=== PATIENT | female | born 1990 | race Caucasian/White ===

== ENCOUNTER 2016-10-27 19:17 | Emergency (ER) | payer BC, OTHER ==
[~2016-10-27] VITALS: Ht 165.1 cm; Wt 68.9 kg
[2016-10-27 19:24] VITALS: BP 106/60
--- NOTE | 2016-10-27 20:06 | NUR ---
TO ER BED 3
--- NOTE | 2016-10-27 20:10 | NUR ---
26Y F BIB FAMILY C/O ABDOMINAL PAIN X 2 WKS. WENT TO SEE PMD , DX. STD YESTERDAY. PT. A0, IUP 11WKS. NO MEDICAL HX.
--- NOTE | 2016-10-27 20:47 | NUR ---
MOBED TO ER BD 7 Addendum: 10/27/16 at 2048 by MEDDM MOVED TO ER BED 7
--- NOTE | 2016-10-27 21:16 | NUR ---
PT TAKEN OFF UNIT VIA WHEELCHAIR BY [employer].
--- NOTE | 2016-10-27 21:40 | NUR ---
PT BACK ON UNIT.
[2016-10-27 21:57] LABS: APPEARANCE,URINE HAZY (CLEAR); BILIRUBIN,URINE NEGATIVE (NEGATIVE); BLOOD, URINE 2+ (NEGATIVE); COLOR,URINE YELLOW (YELLOW); LEUKOCYTE ESTERASE ,URINE NEGATIVE (NEGATIVE); NITRITE, URINE NEGATIVE (NEGATIVE); PROTEIN,URINE NEGATIVE (NEGATIVE); UGLUCOSE NEGATIVE (NEGATIVE); UROBILINOGEN,URINE 0.2 EU/dL (0.2 - 1)
[2016-10-27 22:12] LABS: BACTERIA,URINE 2+ /HPF (None Seen); MUCUS,URINE 3+ /LPF (None Seen); WBC,URINE 0-3 /HPF (0-5)
[2016-10-27 22:36] VITALS: BP 116/62
--- NOTE | 2016-10-27 22:36 | NUR ---
Patient discharged with v/s stable. Written and verbal after care instructions given and explained. Patient alert, oriented and verbalized understanding of instructions. Ambulatory with steady gait. All questions addressed prior to discharge. ID band removed. Patient advised to follow up with PMD. Rx of ACETAMINOPHEN AND MACROBID given. Patient educated on indication of medication including possible reaction and side effects. Opportunity to ask questions provided and answered.
[2016-10-31 06:10] LABS: CHLAMYDIA TRACHOMATIS AMP DNA Positive (Negative)
== END 2016-10-27 22:36 | disposition home or self-care (01) ==
LOC: MED 19:17
DX: O20.0 Threatened abortion (principal); Z3A.11 11 weeks gestation of pregnancy
CPT/HCPCS: 36415; 76817; 81001; 81025; 84702; 87086; 87491; 99285

== ENCOUNTER 2020-01-07 18:40 | Inpatient (IN) | payer OTHER, SELFPAY ==
[~2020-01-07] VITALS: Ht 165.1 cm; Wt 82.1 kg
[2020-01-07] MEDS ORDERED: ACETAMINOPHEN EXTRA STRENGTH 500 MG TAB PO ONE (19:15)
[2020-01-07 19:18] VITALS: BP 120/64
--- NOTE | 2020-01-07 19:21 | NUR ---
COVID SWAB DONE.
--- NOTE | 2020-01-07 20:15 | NUR ---
PT AMBULATED TO BED 9 WITH STEADY GAIT.
--- NOTE | 2020-01-07 20:20 | NUR ---
CALLED L&D AND SPOKE TO LEYLA SMITH TO CONSULT FOR T.
--- NOTE | 2020-01-07 20:30 | NUR ---
FTH: 189, FAB MADE AWARE. PT HAS C/O 8/10 LOWER PELVIC PAIN. FAB STATED TO CALL L&D TO TX PT TO L&D FOR OBSERVATION.
--- NOTE | 2020-01-07 20:39 | NUR ---
PT UNABLE TO PROVIDE UA AT THIS TIME.
--- NOTE | 2020-01-07 20:45 | NUR ---
PT TAKEN TO L&D BED 210. REPORT GIVEN TO LEYLA SMITH FOR CONTINUATION OF CARE.
--- NOTE | 2020-01-07 20:45 | NUR ---
PT 29 Y/O FEMALE BIB SELF FOR C/O COUGH AND FEVER X 1 WEEK. IN TRIAGE PT TEMP 102.5 1 GM OF TYLENOL WAS GIVEN. CURRENT TEMP:100.1. PT STATES SHE HAS HAD A COUGH X 1 WEEK. PT NOTED WITH BILAT CRACKLES IN BILAT UPPER LOBES UPON INSPIRATION. NOTED WITH NON-PRODUCTIVE COUGH. PT HAS C/O NAUSEA, " WHEN I COUGH A LOT I FEEL LIKE I NEED TO THROW UP." PT STATES SHE CURRENTLY HAS 8/10 PELVIC PAIN. PT DENIES VAGINAL BLEEDING OR DISCHARGE. PT STATES SHE WENT TO SEE A DOCTOR X 2 DAYS AGO AND THEY STATES SHE HAD PROTIEN AND BLOOD IN HER URINE. PT CURRENT B/P: 107/67. PT ON LAYOUT FORMER. MEDHX: NONE ALLERGIES: NKA
--- NOTE | 2020-01-07 21:25 | NUR ---
SENT TO L&D VIA ED. ADMITTED UNDER .
--- NOTE | 2020-01-08 00:27 | NUR ---
BIB WHEELCHAIR TO ER RM 9 BY L&D RN
--- NOTE | 2020-01-08 00:52 | NUR ---
[place] [facility] in [facility] - 01/08/20 at 0052 by [email or web address] PT RETURNED TO BED 9 FROM L&D VIA W/C.
--- NOTE | 2020-01-08 01:10 | NUR ---
PE REPORT FROM L&D NURSE PT LABS WERE DRAWN. SPOKE TO ONOFRE IN LAB AND SHE STATED PT LABS ARE IN LAB.
--- NOTE | 2020-01-08 01:11 | NUR ---
DR. OLGUIN AT BEDSIDE.
--- NOTE | 2020-01-08 01:50 | NUR ---
IV PLACED AND COVID SWAB COLLECTED.
[2020-01-08 01:51] LABS: C-REACTIVE PROTEIN QUANT 11.6 mg/dL (0.0-0.9)
[2020-01-08 01:52] LABS: LACTATE DEHYDROGENASE 394 U/L (81-234)
--- NOTE | 2020-01-08 01:52 | NUR ---
XRAY AT BEDSIDE.
[2020-01-08 01:58] LABS: BASOPHILS % (AUTO) 0.5 % (0.0-2.0); HEMATOCRIT 37.4 % (36-48); HEMOGLOBIN 12.5 g/dL (12.0-16.0); LYMPHOCYTES # (AUTO) 0.6 K/uL (2.5-16.5); LYMPHOCYTES % (AUTO) 9.2 % (20.5-51.1); MEAN CORPUSCULAR HEMOGLOBIN 28 pg (27-31); MEAN CORPUSCULAR HGB CONC 33 g/dL (33-37); MEAN CORPUSCULAR VOLUME 84.1 fL (80-94); MONOCYTES # (AUTO) 0.2 K/uL (0.8-1.0); MONOCYTES % (AUTO) 2.8 % (1.7-9.3); NEUTROPHILS # (AUTO) 5.3 K/uL (1.8-7.7); NEUTROPHILS % (AUTO) 87.5 % (42.2-75.2); PLATELET COUNT (AUTO) 211 K/uL (140-450); RED BLOOD CELL COUNT(AUTO) 4.45 MIL/uL (4.20-5.40); RED CELL DISTRIBUTION WIDTH 13.7 % (11.6-13.7)
[2020-01-08 02:25] LABS: ALBUMIN 2.5 g/dL (3.4-5.0); ANION GAP 19.2 (8-16); CARBON DIOXIDE 19.7 mmol/L (21-32); CREATININE 0.6 mg/dL (0.6-1.3); TOTAL BILIRUBIN 0.6 mg/dL (0.0-1.0)
[2020-01-08 02:33] LABS: APPEARANCE,URINE SL CLOUDY (CLEAR); BILIRUBIN,URINE NEGATIVE (NEGATIVE); BLOOD, URINE TRACE-I (NEGATIVE); COLOR,URINE YELLOW (YELLOW); LEUKOCYTE ESTERASE ,URINE NEGATIVE (NEGATIVE); NITRITE, URINE NEGATIVE (NEGATIVE); PH,URINE 6.5 (5.0-9.0); UGLUCOSE NEGATIVE (NEGATIVE)
[2020-01-08 03:04] LABS: FREE T4 (FREE THYROXINE) 1.25 ng/dL (0.76-1.46); MAGNESIUM 1.8 mg/dL (1.8-2.4); PHOSPHORUS 3.7 mg/dL (2.5-4.9); THYROID STIMULATING HORMONE 0.84 uIU/mL (0.34-3.74)
[2020-01-08 03:25] LABS: POTASSIUM 2.9 mmol/L (3.5-5.1)
--- NOTE | 2020-01-08 03:26 | NUR ---
INFORMED POTASSIUM 2.9
[2020-01-08] MEDS: NACL 0.9% 1,000 ML IV SCH ×3 (04:15→22:57)
[2020-01-08 04:16] LABS: PROTHROMBIN TIME 9.2 secs (10.8-13.4)
--- NOTE | 2020-01-08 04:26 | NUR ---
DR NOLAND MADE AWARE OF PT CRITICAL LAB VALUE, POTASSIUM 2.9
[2020-01-08] MEDS ORDERED: MAG SULF 2000 MG/WATER PREMIX 50 ML IV ONE (04:30)
[2020-01-08] MEDS ORDERED: POTASSIUM CHLORIDE 10 MEQ TABER PO ONE (04:30)
--- NOTE | 2020-01-08 04:43 | NUR ---
PT NOTIFIED OF LOW POTASSIUM LEVELS. EDUCATED REGARDING POSSIBLE EFFECTS OF HYPOKALEMIA. EDUCATED ON MEDICATION REGIMEN. PT VERBALLY GAVE CONSENT AND UNDERSTANDING OF THE TEACHING AND MEDICATION ADMINISTRATION. MAG-RIDER AND PO K-DUR ADMINISTERED PER FAB OLGUIN ORDERS. TOLERATED WELL. NADR
--- NOTE | 2020-01-08 05:20 | NUR ---
SATURATIONS DROPPING TO 91-92% ON 2LPM ON N/C. INCREASED OXYGEN TO 5L WITH SATURATIONS NOW AT 98%. WILL CONTINUE TO MONITOR SATURATION
[2020-01-08] MEDS ORDERED: POTASSIUM CHLORIDE 10 MEQ TABER PO SCH (05:25)
[2020-01-08 05:50] LABS: RBC,URINE 0-5 /HPF (0-5); WBC,URINE 0-5 /HPF (0-5)
[2020-01-08] MEDS ORDERED: ALBUTEROL HFA MDI 90 MCG/ACTUATION 8 GM INH PRN ×2 (05:55→20:50)
--- NOTE | 2020-01-08 07:16 | NUR ---
Pt report given to LUIS JOSEPH. Transfer of care at this time.
[2020-01-08] MEDS ORDERED: PNV1TABL8 PO (07:24)
--- NOTE | 2020-01-08 07:27 | NUR ---
PT ASSISTED ONTO BEDSIDE COMMADE, URINE COLLECTED FOR UDS
--- NOTE | 2020-01-08 07:45 | NUR ---
CALLED L&D TO COME TO ER FOR MONITORING.
--- NOTE | 2020-01-08 07:59 | NUR ---
PT EATING REGULAR DIET IN BED
[2020-01-08] MEDS: guaiFENesin 600 MG TABER PO SCH ×2 (08:16→22:35)
[2020-01-08] MEDS: ENOXAPARIN 100 MG/ML SYR SUBQ SCH (08:16)
[2020-01-08] MEDS: ZINC SULF 220 MG CAP PO SCH (08:16)
[2020-01-08] MEDS: DOCUSATE SODIUM 100 MG GELCAP PO SCH ×2 (08:16→22:34)
[2020-01-08] MEDS: ASCORBIC ACID 500 MG TAB PO SCH (08:16)
[2020-01-08] MEDS: VITAMIN D 400 IU TAB PO SCH (08:16)
--- NOTE | 2020-01-08 08:29 | NUR ---
RSV AND FLU SWAB COLLECTED
[2020-01-08] MEDS ORDERED: LOVENOX 1MG/KG Q24H SUBQ SCH (09:00)
[2020-01-08 09:01] LABS: RSV NEGATIVE (NEGATIVE)
[2020-01-08] MEDS ORDERED: DOPPLER MC ONE (09:33)
[2020-01-08 09:42] LABS: CHOL/HDL RATIO 5.5 (1-4.5)
--- NOTE | 2020-01-08 09:44 | NUR ---
L&D AT BEDSIDE FOR MONITORING
--- NOTE | 2020-01-08 10:00 | NUR ---
RN FROM L%D REPORTS HR 150S-160S
--- NOTE | 2020-01-08 10:54 | NUR ---
PATIENT HAS BEEN SCREENED AND CATEGORIZED MODERATE NUTRITION RISK. PATIENT WILL BE SEEN WITHIN 3-5 DAYS OF ADMISSION. 01/10/20 01/12/[address]
--- NOTE | 2020-01-08 12:10 | NUR ---
ASSISTED PT ONTO BEDSIDE COMMODE. PT DENIES PAIN. AFEBRILE. VS STABLE
[2020-01-08] MEDS ORDERED: ALBUTEROL HFA MDI 90 MCG/ACTUATION 8 GM INH SCH (13:00)
--- NOTE | 2020-01-08 13:55 | NUR ---
COTTON MACHINE OPERATOR NOTE: Patient's Orientation Person Situation Place Time Information Provided By MIKE SANTANA Comments SW WAS UNABLE TO MEET PATIENT DUE TO MEDICAL CONDITION. Physician Industrial, Realtionship and Phone Number MIKE MAX [phone] Healthcare Power of Dog Breeder No Does Patient Have a POLST No Identifying Problems No Social Work Triggers Is A Social Work Consult Needed No Mandate Report Filed No Explanation Of Identifying Problems PATIENT IS A 29-YEAR-OLD MALE ADMITTED FOR RESPIRATORY INSUFFICIENCY. PATIENT HAS PMHX OF , 22 WEEKS GESTATION. Admitted From Home Pre-Admission Level Of Functioning Status Independent/Ambulatory Prior Resources/Services Used In Last 12 Months No Prior Resources Used Prior DME No Prior DME Used Living Situation Lives With Family House Patient Had Caregiver No Home Support No Caregiver Issues Financial Issues No Known Financial Issue Referral To The Financial Counselor Needed No Factors/Needs No D/C Needs Identified Pt/Rep Participated In Discharge Plan Yes Patient/Family Agress With Discharge Plan Yes Discharge Plan Comments TENTATIVE DISCHARGE PLAN IS FOR PATIENT TO RETURN HOME. DC Plan Status Initiated
[2020-01-08] MEDS: ACETAMINOPHEN 325 MG TAB PO PRN (17:11)
--- NOTE | 2020-01-08 17:12 | NUR ---
TYLENOL PO ADMINISTERED. PT STATES PAIN 6/10 SORE THROAT
--- NOTE | 2020-01-08 18:51 | NUR ---
DR ANAYA AT BEDSIDE
--- NOTE | 2020-01-08 19:14 | NUR ---
REPORT RECEIVED FROM JAKE SMITH
--- NOTE | 2020-01-08 19:17 | NUR ---
REPORT TO SEBLE SMITH, TRANSFER OF CARE
--- NOTE | 2020-01-08 19:45 | NUR ---
PT RESTING COMFORTABLY AT THIS TIME, PT REMAINS ON 5L N/C. PT DENIES ANY PAIN OR SOB AT THIS TIME. PT TO BE TRANSFERRED TO L & D ROOM 210
--- NOTE | 2020-01-08 20:30 | NUR ---
Patient will be admitted to [facility]. Admited to L & D. Will go to room 210. Belongings list completed. Report to RUY SMITH.
[2020-01-08 22:00] VITALS: BP 120/65
--- NOTE | 2020-01-08 22:00 | NUR ---
Admitted from ER TO TELEMETRY UNIT, with chief complaint of COUGH , FEVER FOR ALMOST ONE WEEK NOW. 29 y/o ,Female, Cooperative, AWAKE, A/OX4. , ON 22 WEEKS OF . FHB CHECKED BY OB NURSE, RATE OF 150. RESPIRATION EVEN AND UNLABORED. LUNGS CLEAR ON BILATERAL AUSCULTATION. WITH OCCASIONAL UNPRODUCTIVE COUGHING. IV NS INFUSING AT 25 ML/HR AT THE RIGHT AC G20. AMBULATORY TO THE BATHROOM. HEAD TO TOE ASSESSMENT DONE WITH JUANPABLO SMITH, SKIN IS INTACT. DENIES PAIN 0/10.oriented to call light, bed, phone,television, bathroom, smoking policy,visiting hours, procedures, ID bracelet on. Belongings list checked.
[2020-01-08] MEDS ORDERED: cefTRIAXone 1,000 MG VIAL ONE (22:40)
--- NOTE | 2020-01-09 | NUR ---
COMPLETED AND REVIEWED POC WITH FABIAN SULTANA.
[2020-01-09] MEDS: NACL 0.9% 1,000 ML IV SCH ×3 (00:20→20:34)
[2020-01-09] MEDS: guaiFENesin 20 MG/ML UDC PO PRN ×4 (01:55→20:19)
--- NOTE | 2020-01-09 01:55 | NUR ---
WITH COUGHING, MEDICATED WITH ROBITUSSIN PER MD ORDER.
[2020-01-09] MEDS: ACETAMINOPHEN 325 MG TAB PO PRN (02:23)
--- NOTE | 2020-01-09 02:55 | NUR ---
RESTING IN BED, NO COUGHING NOTED.
--- NOTE | 2020-01-09 03:37 | NUR ---
INSTRUCTION GIVEN ON HOW TO COLLECT SPUTUM FOR TEST, SPECIMEN CONTAINER GIVEN.
[2020-01-09 04:00] VITALS: BP 112/70
--- NOTE | 2020-01-09 05:00 | NUR ---
FINALLY ABLE TO GO TO SLEEP. NO SOB NOTED.
[2020-01-09 06:21] LABS: BASOPHILS % (AUTO) 0.1 % (0.0-2.0); EOSINOPHILS % (AUTO) 0.3 % (0.0-4.0); HEMOGLOBIN 10.3 g/dL (12.0-16.0); LYMPHOCYTES # (AUTO) 0.7 K/uL (2.5-16.5); LYMPHOCYTES % (AUTO) 12.2 % (20.5-51.1); MEAN CORPUSCULAR HEMOGLOBIN 28 pg (27-31); MEAN CORPUSCULAR HGB CONC 33 g/dL (33-37); MEAN CORPUSCULAR VOLUME 84.7 fL (80-94); MONOCYTES # (AUTO) 0.3 K/uL (0.8-1.0); MONOCYTES % (AUTO) 5.7 % (1.7-9.3); NEUTROPHILS # (AUTO) 4.5 K/uL (1.8-7.7); NEUTROPHILS % (AUTO) 81.7 % (42.2-75.2); PLATELET COUNT (AUTO) 219 K/uL (140-450); RED BLOOD CELL COUNT(AUTO) 3.66 MIL/uL (4.20-5.40); RED CELL DISTRIBUTION WIDTH 13.5 % (11.6-13.7); WHITE BLOOD COUNT (AUTO) 5.5 K/uL (4.8-10.8)
--- NOTE | 2020-01-09 07:18 | NUR ---
RECEIVED REPORT FROM RETORT LOAD EXPEDITER RN FOR CONTINUITY OF CARE. PT IS AAOX4, COOPERATIVE AND ABLE TO MAKE NEEDS KNOWN. PT ON 3L O2 VIA NC SATING WELL. PT SKIN INTACT. PT HAS RIGHT AC 20G INFUSING NS@ 100ML/HR. DISCUSSED POC WITH PT NAD PT VERBALIZED UNDERSTANDING. ALL SAFETY MEASURES IN PLACE. WILL ROUND FREQUENTLY ON PT THROUGHOUT THE SHIFT.
--- NOTE | 2020-01-09 07:20 | NUR ---
RESPIRATORY STATUS REMAIN STABLE. ENDORSED TO AM SHIFT NURSE FOR CONTINUITY OF CARE.
[2020-01-09 08:00] VITALS: BP 118/75
[2020-01-09 08:28] LABS: BARBITURATE, URINE NEGATIVE ng/ml (NEG <=200); BENZODIAZEPINE, URINE NEGATIVE ng/mL (NEG <=200); CANNABINOID, URINE NEGATIVE ng/mL (NEG <=50); COCAINE, URINE NEGATIVE ng/mL (NEG <=300); OPIATE, URINE NEGATIVE ng/mL (NEG <=2000); PHENCYCLIDINE SCREEN,URINE NEGATIVE ng/mL (NEG <=25)
[2020-01-09 08:53] LABS: ALBUMIN 1.9 g/dL (3.4-5.0); ANION GAP 17.7 (8-16); CARBON DIOXIDE 18.4 mmol/L (21-32); CREATININE 0.5 mg/dL (0.6-1.3); POTASSIUM 3.1 mmol/L (3.5-5.1); TOTAL BILIRUBIN 0.5 mg/dL (0.0-1.0)
[2020-01-09] MEDS: VITAMIN D 400 IU TAB PO SCH (08:53)
[2020-01-09] MEDS: DOCUSATE SODIUM 100 MG GELCAP PO SCH ×2 (08:54→20:19)
[2020-01-09] MEDS: guaiFENesin 600 MG TABER PO SCH ×2 (08:54→20:35)
[2020-01-09] MEDS: ASCORBIC ACID 500 MG TAB PO SCH (08:54)
[2020-01-09] MEDS: ZINC SULF 220 MG CAP PO SCH (08:54)
[2020-01-09] MEDS: prednisoLONE 15 MG/5 ML UDC PO SCH (08:55)
[2020-01-09] MEDS: ENOXAPARIN 100 MG/ML SYR SUBQ SCH (08:55)
--- NOTE | 2020-01-09 09:40 | NUR ---
PT RESTING IN BED. ALL NEEDS MET.
--- NOTE | 2020-01-09 11:20 | NUR ---
PT ASLEEP. ALL NEEDS MET.
[2020-01-09 12:00] VITALS: BP 121/72
--- NOTE | 2020-01-09 12:39 | NUR ---
DISCHARGE PLANNING: THIS IS A 29 Y/O FEMALE 23 WKS GESTATION PATIENT FROM HOME, WHO CAME IN DUE TO FLU LIKE SYMPTOMS. INITIAL DIAGNOSIS OF RESPIRATORY INSUFFICIENCY, POSSIBLE COVID. COVID TEST PENDING. ON O2 AT 3 LPM/NC 02 SAT 96-98%. BLOOD, URINE CS AND MRSA NARES PENDING. CXR ON ADMISSION SHOWED BILATERAL INFILTRATES IN A PATTERN SUSPICIOUS FOR COVID 19. ON PREDNISONE, ROCEPHIN. OB AND PULMO CONSULTS IN PLACE. DC PLAN BACK TO HOME ONCE STABLE.
--- NOTE | 2020-01-09 13:13 | NUR ---
PT RESTING IN BED. ALL NEEDS MET.
--- NOTE | 2020-01-09 15:40 | NUR ---
PT HAVING SNACK. ALL NEEDS MET.
[2020-01-09 16:00] VITALS: BP 117/78
--- NOTE | 2020-01-09 17:50 | NUR ---
OB RN CAME TO CHECK TONE. HEART RATE IS 155-160 BPM.
--- NOTE | 2020-01-09 19:00 | NUR ---
WILL ENDORSE PT TO REFUGE WORKER FOR CONTINUITY OF CAR. PT IN STABLE CONDITION AT THIS TIME.
--- NOTE | 2020-01-09 19:30 | NUR ---
RECEIVED BEDSIDE REPORT FROM DAY SHIFT NURSE. PATIENT IS 22 WEEKS . RESPIRATION EVEN UNLABORED ON 3L NC O2. NO DISTRESS NOTED. SKIN IS WARM AND DRY. IV PATENT AND INTACT. PLAN OF CARE WAS DISCUSSED. ALL SAFETY MEASURES IN PLACE. BED IS AT LOW POSITION. CALL LIGHT WITHIN REACH. WILL CONTINUE TO MONITOR.
--- NOTE | 2020-01-09 19:55 | NUR ---
INITIAL ASSESSMENT DONE. VITALS WERE TAKEN. PATIENT IN STABLE CONDITION. NO DISTRESS NOTED. PATIENT ON 3L NC O2. SATING 97%. COUGH NOTED AND PATIENT IS ASKING FOR ROBITUSSIN. WILL CONTINUE TO MONITOR.
[2020-01-09 20:00] VITALS: BP 102/59
--- NOTE | 2020-01-09 20:20 | NUR ---
ALL SCHEDULED MEDS WERE GIVEN. PATIENT REFUSED MUCINEX PER PATIENT STATED IT DOESN'T WORK. PATIENT ASK FOR ROBITUSSIN INSTEAD. PRN ROBITUSSIN FOR COUGH GIVEN PER ORDER. WILL CONTINUE TO MONITOR.
--- NOTE | 2020-01-09 22:15 | NUR ---
CALLED L&D NURSE TO CHECK PATIENT FHT PER ORDER. WILL CONTINUE TO MONITOR.
--- NOTE | 2020-01-09 22:56 | NUR ---
OB RN CAME TO CHECK TONE. HEART RATE IS 150 BPM.
--- NOTE | 2020-01-09 23:53 | NUR ---
VITALS WERE TAKEN. PATIENT IN STABLE CONDITION. WILL CONTINUE TO MONITOR
[2020-01-10] VITALS: BP 98/58
--- NOTE | 2020-01-10 02:11 | NUR ---
ENDORSED PATIENT TO SUZETTE RN FOR CONTINUITY OF CARE. PATIENT IN STABLE CONDITION.
--- NOTE | 2020-01-10 02:12 | NUR ---
RECEIVED ENDORSEMENT FROM LUIS VASQUES PATIENT IS LYING IN BED, WITH O2 AT 3L NC, NO SOB, AAOX4, IV SITE AT RAC 20G, INTACT AND PATENT, INFUSING NS AT 60 CC/HR. SKIN INTACT, 22 WKS PER ENDORSEMENT, WITH FHT OF 150 BPM, TELE MONITOR ATTACHED, DROPLET PRECAUTION IN PLACE, PLAN OF CARE WAS DISCUSSED. CALL LIGHT WITHIN REACH, WILL CONTINUE TO MONITOR.
[2020-01-10] MEDS: guaiFENesin 20 MG/ML UDC PO PRN (02:42)
--- NOTE | 2020-01-10 02:42 | NUR ---
PATIENT COMPLAINED OF COUGH. PRN COUGH MEDICINE GIVEN PER ORDER. WILL CONTINUE TO MONITOR.
[2020-01-10] MEDS: NACL 0.9% 1,000 ML IV SCH (02:54)
[2020-01-10 04:00] VITALS: BP 104/59
--- NOTE | 2020-01-10 04:00 | NUR ---
V/S TAKEN AND RECORDED, KEPT COMFORTABLE, NO SOB.
[2020-01-10 05:55] LABS: BASOPHILS % (AUTO) 0.1 % (0.0-2.0); EOSINOPHILS % (AUTO) 0.4 % (0.0-4.0); HEMATOCRIT 30.1 % (36-48); HEMOGLOBIN 10.2 g/dL (12.0-16.0); LYMPHOCYTES # (AUTO) 0.7 K/uL (2.5-16.5); LYMPHOCYTES % (AUTO) 11.1 % (20.5-51.1); MEAN CORPUSCULAR HEMOGLOBIN 29 pg (27-31); MEAN CORPUSCULAR HGB CONC 34 g/dL (33-37); MEAN CORPUSCULAR VOLUME 84.1 fL (80-94); MONOCYTES # (AUTO) 0.3 K/uL (0.8-1.0); MONOCYTES % (AUTO) 4.6 % (1.7-9.3); NEUTROPHILS # (AUTO) 5.3 K/uL (1.8-7.7); NEUTROPHILS % (AUTO) 83.8 % (42.2-75.2); PLATELET COUNT (AUTO) 264 K/uL (140-450); RED BLOOD CELL COUNT(AUTO) 3.57 MIL/uL (4.20-5.40); RED CELL DISTRIBUTION WIDTH 13.3 % (11.6-13.7); WHITE BLOOD COUNT (AUTO) 6.3 K/uL (4.8-10.8)
[2020-01-10 07:06] LABS: ALBUMIN 1.9 g/dL (3.4-5.0); CREATININE 0.4 mg/dL (0.6-1.3); TOTAL BILIRUBIN 0.3 mg/dL (0.0-1.0)
--- NOTE | 2020-01-10 07:15 | NUR ---
RECEIVED BEDSIDE REPORT FROM COMMERCIAL DRIVER'S LICENSE DRIVER NURSE FOR CONTINUITY OF CARE. PATIENT IS 22 WEEKS . RESPIRATION EVEN AND UNLABORED ON 3L NC O2 WITH SAO2 AT 96%. NO DISTRESS NOTED. SKIN IS WARM AND DRY. IV ON THE RAC 20G, PATENT AND INTACT WITH IVF RUNNING PER ORDERS. PLAN OF CARE WAS DISCUSSED AND PATIENT VERBALIZES UNDERSTANDING. ALL SAFETY MEASURES IN PLACE. DROPLET ISOLATION OBSERVED BY ALL STAFF. BED IS AT LOW POSITION. CALL LIGHT WITHIN REACH. WILL CONTINUE TO MONITOR.
--- NOTE | 2020-01-10 07:20 | NUR ---
PATIENT IS STABLE, NO SOB, ENDORSED AT BEDSIDE TO AM SHIFT RN FOR CONTINUITY OF CARE.
[2020-01-10 08:00] VITALS: BP 103/61
--- NOTE | 2020-01-10 08:20 | NUR ---
MORNING V/S TAKEN AND IS WNL. PATIENT VERBALIZES NO PAIN AND NO SIGNS OF DISTRESS NOTED. WILL CONTINUE TO MONITOR.
[2020-01-10] MEDS: VITAMIN D 400 IU TAB PO SCH (09:19)
[2020-01-10] MEDS: ASCORBIC ACID 500 MG TAB PO SCH (09:19)
[2020-01-10] MEDS: guaiFENesin 600 MG TABER PO SCH ×2 (09:20→22:35)
[2020-01-10] MEDS: ZINC SULF 220 MG CAP PO SCH (09:20)
[2020-01-10] MEDS: DOCUSATE SODIUM 100 MG GELCAP PO SCH ×2 (09:20→22:34)
--- NOTE | 2020-01-10 09:20 | NUR ---
MORNING MEDICATIONS GIVEN. NO SIGNS OF DISTRESS NOTED. WILL CONTINUE TO MONITOR.
[2020-01-10] MEDS: prednisoLONE 15 MG/5 ML UDC PO SCH (09:23)
[2020-01-10] MEDS: ENOXAPARIN 100 MG/ML SYR SUBQ SCH (09:26)
--- NOTE | 2020-01-10 11:55 | NUR ---
POTASSIUM IVF GIVEN FOR POTASSIUM OF 3.0. NO SIGNS OF DISTRESS NOTED. WILL CONTINUE TO MONITOR.
[2020-01-10 12:00] VITALS: BP 108/60
[2020-01-10] MEDS ORDERED: POTASSIUM CHLORIDE 40 MEQ, LIDOCAINE MPF 1% 25 MG in NACL 0.9% 250 ML IV SCH (12:30)
--- NOTE | 2020-01-10 12:50 | NUR ---
V/S TAKEN AND IS WNL. NO SIGNS OF DISTRESS NOTED. PATIENT IS ASLEEP AND IN BED. WILL CONTINUE TO MONITOR.
[2020-01-10 16:00] VITALS: BP 103/55
--- NOTE | 2020-01-10 16:20 | NUR ---
PATIENT IS AWAKE AND IN BED. PATIENT VERBALIZES NO PAIN, NO SIGNS OF DISTRESS NOTED. WILL CONTINUE TO MONITOR.
--- NOTE | 2020-01-10 19:20 | NUR ---
ENDORSED TO CAPACITY MANAGEMENT SPECIALIST NURSE FOR CONTINUITY OF CARE.
--- NOTE | 2020-01-10 19:30 | NUR ---
RECEIVED ENDORSED POC FROM DAYSORFT NURSE FOR CONTINUITY OF CARE. PT IS AOX 4 AMBULATORY WITH SKIN INTACT . SHE HAS RAC 20 GUAGE INTACT AND RUNNING N/S AT 60MLS/HR. SHE HAS DRY INTERMITTENT NON PRODUCTIVE COUGH , BUT DENIES ANY PAIN. SHE HAS 02 RUNNING AT 3 LITERS VIA N/C. ALL DROPLET PRECAUTIONS IN PLACE.
[2020-01-10 20:00] VITALS: BP 104/60
--- NOTE | 2020-01-10 21:00 | NUR ---
PT GIVEN ORDERED MEDICATION AT BEDSIDE,(IVPB ROCEPHIN, COLACE AND MUCINEX). EDUCATION REGARDING MEDICATION PROVIDED INCLUDING SIDE EFFECTS, PT VERBALIZED UNDERSTANDING. ALL DROPLET PRECAUTIONS IN PLACE.
--- NOTE | 2020-01-10 22:30 | NUR ---
TONES DONE AT BEDSIDE WHICH WAS 150-160, WHICH ARE WITHIN NORMAL RANGE.
[2020-01-11] VITALS: BP 101/51
--- NOTE | 2020-01-11 | NUR ---
PT IN BED AWARE NO S/S OF PAIN OR DISTRESS NOTED, V/S FOLLOWS: T 97.8 P 82 R 20 B/P 101/51 02 97% WITH 3 LITERS VIA N/C. N/S RUNNING ORDERED AND PT RESPIRATIONS EVEN AND UNLABORED. ALL DROPLET PRECAUTIONS IN PLACE.
[2020-01-11 04:00] VITALS: BP 111/64
--- NOTE | 2020-01-11 04:00 | NUR ---
PT IN BED NO C/O VOICED V/S FOLLOWS: T 97.4 P 86 R 20 B/P 111/64 02 98% WITH 2.5 LITERS VIA N/C. ALL DROPLET PRECAUTIONS IN PLACE.
[2020-01-11] MEDS: NACL 0.9% 1,000 ML IV SCH ×2 (06:00→22:44)
[2020-01-11 06:19] LABS: BASOPHILS % (AUTO) 0.2 % (0.0-2.0); EOSINOPHILS # (AUTO) 0.1 K/uL (0-0.4); EOSINOPHILS % (AUTO) 1.2 % (0.0-4.0); HEMATOCRIT 29.3 % (36-48); HEMOGLOBIN 9.9 g/dL (12.0-16.0); LYMPHOCYTES # (AUTO) 0.7 K/uL (2.5-16.5); MEAN CORPUSCULAR HEMOGLOBIN 28 pg (27-31); MEAN CORPUSCULAR HGB CONC 34 g/dL (33-37); MONOCYTES # (AUTO) 0.4 K/uL (0.8-1.0); MONOCYTES % (AUTO) 5.7 % (1.7-9.3); NEUTROPHILS # (AUTO) 5.9 K/uL (1.8-7.7); NEUTROPHILS % (AUTO) 82.9 % (42.2-75.2); PLATELET COUNT (AUTO) 287 K/uL (140-450); RED BLOOD CELL COUNT(AUTO) 3.49 MIL/uL (4.20-5.40); RED CELL DISTRIBUTION WIDTH 13.7 % (11.6-13.7); WHITE BLOOD COUNT (AUTO) 7.1 K/uL (4.8-10.8)
[2020-01-11 06:34] LABS: ALBUMIN 1.6 g/dL (3.4-5.0); ANION GAP 14.6 (8-16); CARBON DIOXIDE 20.4 mmol/L (21-32); CREATININE 0.5 mg/dL (0.6-1.3); TOTAL BILIRUBIN 0.3 mg/dL (0.0-1.0)
[2020-01-11 07:17] LABS: MAGNESIUM 1.5 mg/dL (1.8-2.4); PHOSPHORUS 2.9 mg/dL (2.5-4.9)
--- NOTE | 2020-01-11 07:30 | NUR ---
Received report from shift leader nurse at bedside for continuity of care. Patient AOx4, ambulatory, skin intact, on 4L O2 via NC. RAC 20G IV intact, asymptomatic, running NS at 60 cc/hr. Patient denies pain. inform her about sputum collection, she verbalized understanding, but only has dry cough. Patient on droplet precautions for positive covid result. Plan of care verbalized, she verbalized understanding. Droplet precautions in place, call light within reach, will continue to monitor patient.
[2020-01-11 08:00] VITALS: BP 109/61
--- NOTE | 2020-01-11 08:30 | NUR ---
CALLED L&D, INFORMED THEM OF NEED FOR FHT QSHIFT. THEY VERBALIZED UNDERSTANDING AND WILL SEND SOMEONE OVER WHEN AVAILABLE. PATIENT AWARE OF PLAN. WILL CONTINUE TO MONITOR PATIENT.
[2020-01-11] MEDS: ASCORBIC ACID 500 MG TAB PO SCH (09:09)
[2020-01-11] MEDS: DOCUSATE SODIUM 100 MG GELCAP PO SCH ×2 (09:09→20:16)
--- NOTE | 2020-01-11 09:09 | NUR ---
ORDERED MEDICATIONS GIVEN. LOVENOX AND GUANIFESIN NOT GIVEN AT THIS TIME BECAUSE NOT AVAILABLE IN OMNICELL. PATIENT AWARE. PATIENT'S O2 DECREASED FROM 3L TO 2L, VERBALIZED PLAN TO WEAN PATIENT TO ROOM AIR. PATIENT AGREEABLE TO PLAN. O2 SAT AT THIS TIME 95% ON 2L. PATIENT AWARE TO CALL RN IF SOB OR DISTRESS. CURRENTLY DENIES PAIN. NO COMPLAINTS AT THIS TIME. DROPLET PRECAUTIONS IN PLACE, CALL LIGHT WITHIN REACH, WILL CONTINUE TO MONITOR PATIENT.
[2020-01-11] MEDS: VITAMIN D 400 IU TAB PO SCH (09:10)
[2020-01-11] MEDS: ZINC SULF 220 MG CAP PO SCH (09:10)
[2020-01-11] MEDS: guaiFENesin 600 MG TABER PO SCH ×2 (10:40→20:16)
--- NOTE | 2020-01-11 10:40 | NUR ---
ORDERED MEDICATIONS GIVEN. PATIENT TOLERATED THEM. PATIENT CURRENTLY OFF OF O2. O2 SATURATION 92%. WILL MONITOR PATIENT CLOSELY. INFORM PATIENT TO CALL RN IF SOB OR DISTRESS. PATIENT VERBALIZED UNDERSTANDING. Addendum: 01/11/20 at 1057 by Indra Tamayo RN L&D NURSE DAILYNN CAME. HEART TONES 160.
[2020-01-11] MEDS: ENOXAPARIN 80 MG/0.8 ML SYR SUBQ SCH (10:42)
--- NOTE | 2020-01-11 10:45 | NUR ---
Inform Dr. Whitlock about patient's Mag level of 1.5 and K level of 3.0. Will wait for his orders.
[2020-01-11 11:30] VITALS: BP 106/64
[2020-01-11] MEDS ORDERED: MAG SULF 2000 MG/WATER PREMIX 50 ML IV SCH (11:30)
[2020-01-11] MEDS ORDERED: POTASSIUM CHLORIDE 40 MEQ, LIDOCAINE MPF 1% 25 MG in NACL 0.9% 250 ML IV SCH (11:45)
--- NOTE | 2020-01-11 12:55 | NUR ---
Inform Dr. Whitlock that patient could benefit from IS, new order in for IS. IS given to patient. Patient educated on its use and benefits. Patient verbalized understanding and agreeable to use it. Will continue to monitor patient.
[2020-01-11 16:00] VITALS: BP 109/68
--- NOTE | 2020-01-11 16:10 | NUR ---
VS WNL. Patient has no complaints at this time. Call light within reach, will continue to monitor patient.
--- NOTE | 2020-01-11 18:20 | NUR ---
Patient sitting up in bed eating dinner. Encouraged patient to use IS, patient in agreement. No complaints at this time. Call light within reach, will continue to monitor patient and endorse to thread spinner nurse.
--- NOTE | 2020-01-11 19:05 | NUR ---
RECEIVED BEDSIDE SHIFT REPORT FROM DAY SHIFT NURSE. PATIENT IN BED RESTING. PT IS AAOX4, AMBULATORY, AND ABLE TO MAKE NEEDS KNOWN. RESPIRATIONS ARE EVEN AND UNLABORED TO ROOM AIR, O2 SAT 94%. SKIN IS WARM, DRY, AND INTACT. IV ACCESS ON RIGHT AC G20 IS PATENT AND INTACT. IVF INFUSING WELL AT 60 CC/HR ORDERED. PT IS 22 WEEKS . DENIES ANY PAIN OR DISCOMFORT AT THIS TIME. PLAN OF CARE DISCUSSED. PT VERBALIZED UNDERSTANDING. SAFETY MEASURES IN PLACE. CALL LIGHT WITHIN REACH. WILL CONTINUE TO MONITOR.
[2020-01-11 20:00] VITALS: BP 108/65
--- NOTE | 2020-01-11 20:16 | NUR ---
VITAL SIGNS STABLE. SCHEDULED MEDS GIVEN ORDERED. PT IN BED WITH HOB ELEVATED. NOT IN DISTRESS. DENIES ANY PAIN OR DISCOMFORT. STILL WITH MILD COUGH. O2 SAT 95%. NO REQUESTS MADE AT THIS TIME. PT KEPT COMFORTABLE. CALL LIGHT WITHIN REACH. WILL CONTINUE TO MONITOR.
--- NOTE | 2020-01-11 21:28 | NUR ---
L&D NURSE AT BEDSIDE FOR FHT MONITORING. FHT 158. WILL CONTINUE TO MONITOR.
--- NOTE | 2020-01-11 22:44 | NUR ---
PT IN BED WATCHING TV WITH HOB ELEVATED. RESPIRATIONS EVEN AND UNLABORED. O2 SAT 94%. DENIES ANY PAIN OR DISCOMFORT. NEW IV BAG HANGED. PT KEPT COMFORTABLE. CALL LIGHT WITHIN REACH. WILL CONTINUE TO MONITOR.
[2020-01-12] VITALS: BP 109/66
--- NOTE | 2020-01-12 00:07 | NUR ---
PT IN BED WATCHING TV WITH HOB ELEVATED. VITAL SIGNS STABLE. PT NOT IN RESPIRATORY DISTRESS. O2 SAT 97%. DENIES ANY PAIN OR DISCOMFORT AT THIS TIME. NO REQUESTS MADE. PT KEPT COMFORTABLE. SAFETY MEASURES IN PLACE. WILL CONTINUE TO MONITOR.
--- NOTE | 2020-01-12 02:02 | NUR ---
PT ASLEEP. O2 IN PLACE. VISIBLE CHEST RISE AND FALL NOTED. NO S/SX OF DISTRESS. PT KEPT COMFORTABLE. SAFETY MEASURES IN PLACE. CALL LIGHT WITHIN REACH. WILL CONTINUE TO MONITOR.
[2020-01-12 04:00] VITALS: BP 108/58
--- NOTE | 2020-01-12 04:19 | NUR ---
VITAL SIGNS STABLE. PT IN BED RESTING. RESPIRATIONS EVEN AND UNLABORED. PT NOT IN DISTRESS. O2 SAT 95% ON ROOM AIR. DENIES ANY PAIN OR DISCOMFORT AT THIS TIME. STILL WITH INTERMITTENT DRY COUGH. NO REQUESTS MADE. PT KEPT COMFORTABLE. SAFETY MEASURES IN PLACE. CALL LIGHT WITHIN REACH. WILL CONTINUE TO MONITOR.
[2020-01-12 06:00] LABS: BASOPHILS % (AUTO) 0.1 % (0.0-2.0); EOSINOPHILS # (AUTO) 0.1 K/uL (0-0.4); EOSINOPHILS % (AUTO) 1.7 % (0.0-4.0); HEMATOCRIT 28.7 % (36-48); HEMOGLOBIN 9.6 g/dL (12.0-16.0); LYMPHOCYTES # (AUTO) 0.8 K/uL (2.5-16.5); LYMPHOCYTES % (AUTO) 11.9 % (20.5-51.1); MEAN CORPUSCULAR HEMOGLOBIN 28 pg (27-31); MEAN CORPUSCULAR HGB CONC 34 g/dL (33-37); MEAN CORPUSCULAR VOLUME 83.8 fL (80-94); MONOCYTES # (AUTO) 0.4 K/uL (0.8-1.0); MONOCYTES % (AUTO) 6.3 % (1.7-9.3); NEUTROPHILS # (AUTO) 5.1 K/uL (1.8-7.7); PLATELET COUNT (AUTO) 316 K/uL (140-450); RED BLOOD CELL COUNT(AUTO) 3.42 MIL/uL (4.20-5.40); RED CELL DISTRIBUTION WIDTH 13.6 % (11.6-13.7); WHITE BLOOD COUNT (AUTO) 6.4 K/uL (4.8-10.8)
--- NOTE | 2020-01-12 06:08 | NUR ---
PT ASLEEP. RESPIRATIONS EVEN AND UNLABORED. CURRENT O2 SAT 94%. PT NOT IN DISTRESS. NOTED VISIBLE CHEST RISE AND FALL. PT KEPT COMFORTABLE. CALL LIGHT WITHIN REACH. WILL CONTINUE TO MONITOR.
[2020-01-12 06:36] LABS: ALBUMIN 1.7 g/dL (3.4-5.0); ANION GAP 14.5 (8-16); CARBON DIOXIDE 19.7 mmol/L (21-32); CREATININE 0.5 mg/dL (0.6-1.3); MAGNESIUM 1.6 mg/dL (1.8-2.4); PHOSPHORUS 3.2 mg/dL (2.5-4.9); POTASSIUM 3.2 mmol/L (3.5-5.1); TOTAL BILIRUBIN 0.3 mg/dL (0.0-1.0)
--- NOTE | 2020-01-12 07:00 | NUR ---
Received report from shift superintendent caustic cresylate nurse at bedside for continuity of care. Patient AOx4, ambulatory, skin intact, on 4L O2 via NC. RAC 20G IV intact, asymptomatic, running NS at 60 cc/hr. Patient denies pain. Patient on droplet precautions for positive covid result. Plan of care verbalized, she verbalized understanding. Droplet precautions in place, call light within reach, will continue to monitor patient.
--- NOTE | 2020-01-12 07:03 | NUR ---
GAVE BEDSIDE REPORT TO DAY SHIFT NURSE FOR CONTINUITY OF CARE. PATIENT IS IN STABLE CONDITION.
[2020-01-12 08:00] VITALS: BP 105/65
[2020-01-12] MEDS: VITAMIN D 400 IU TAB PO SCH (08:50)
[2020-01-12] MEDS: ASCORBIC ACID 500 MG TAB PO SCH (08:50)
[2020-01-12] MEDS: guaiFENesin 600 MG TABER PO SCH (08:50)
[2020-01-12] MEDS: ZINC SULF 220 MG CAP PO SCH (08:50)
[2020-01-12] MEDS: DOCUSATE SODIUM 100 MG GELCAP PO SCH (08:51)
[2020-01-12] MEDS: ENOXAPARIN 80 MG/0.8 ML SYR SUBQ SCH (08:54)
[2020-01-12] MEDS ORDERED: AZIT250T3 PO (11:13)
[2020-01-12] MEDS ORDERED: MAGN241.1 PO (11:14)
[2020-01-12] MEDS ORDERED: POTA10TE30 PO (11:14)
[2020-01-12] MEDS ORDERED: POTASSIUM CHLORIDE 10 MEQ TABER PO SCH (11:15)
[2020-01-12] MEDS ORDERED: MAGNESIUM OXIDE 400 MG TAB PO SCH (11:15)
--- NOTE | 2020-01-12 12:20 | NUR ---
DISCHARGE INSTRUCTIONS AND EDUCATION GIVEN TO PATIENT. INSTRUCTIONS ABOUT COVID 19 AND ISOLATION POST DISCHARGE, PRESCRIPTIONS, FOLLOW UP WITH PCP AND OB, NUTRITION AND HYDRATION. PATIENT VERBALIZED UNDERSTANDING. IV REMOVED, IV CATHETER INTACT, MINIMAL BLEEDING NOTED. ID BANDS CUT. TELE MONITOR REMOVED. PATIENT SIGNED ALL PAPERWORK. CALLED TO COME PICK HER UP. PATIENT WILL NOW CHANGE INTO HER OWN CLOTHING TO BE DISCHARGED HOME.
--- NOTE | 2020-01-12 13:00 | NUR ---
PATIENT WHEELED OFF FLOOR BY STORAGE CONSULTANT TO HER CAR TO BE PICKED UP BY TO TAKE HER HOME. PATIENT TOOK ALL HER BELONGINGS WITH HER.
== END 2020-01-12 13:00 | disposition home or self-care (01) | DRG 831 ==
LOC: MED 18:40 → EEVIPCON 18:40 → MFCC 21:23 → MED 21:44 → MFCC 21:44 → UNDOADMOB 21:45 → MFCC 21:45 → MED 01-08 00:47 → MTU 01-08 02:34 → MFCC 01-08 06:45 → MTU 01-08 19:56 → MFCC 01-08 20:11 → MMU 01-08 21:30
PROVIDERS: ADMIT Family Medicine; ATTEND Obstetrics & Gynecology
DX: O98.512 Other viral diseases complicating pregnancy, second trimester (principal); E43 Unspecified severe protein-calorie malnutrition; J12.89 Other viral pneumonia; U07.1 COVID-19; O99.512 Diseases of the respiratory system complicating pregnancy, second trimester; O25.12 Malnutrition in pregnancy, second trimester; Z3A.23 23 weeks gestation of pregnancy; E87.6 Hypokalemia; O99.282 Endocrine, nutritional and metabolic diseases complicating pregnancy, second trimester; O99.012 Anemia complicating pregnancy, second trimester; D64.9 Anemia, unspecified; E83.42 Hypomagnesemia
CPT/HCPCS: 36415; 71045; 76805; 80053; 80305; 81001; 82150; 82550; 82728; 83036; 83605; 83615; 83690; 83735; 83880; 84100; 84439; 84443; 84484; 85025; 85379; 85384; 85610; 85651; 85730; 86140; 86886; 86900; 86901; 87040; 87081; 87086; 87420; 87804; 93005; 96365; 96372; 99285; J0696; J1650; J2001; J3475; J3480; J3535; J7030; J7060; J7510; Q0092; U0003-CS

== ENCOUNTER 2024-01-20 21:11 | Emergency (ER) | payer MEDICAID ==
[~2024-01-20] VITALS: Ht 162.6 cm; Wt 77.1 kg
[~2024-01-20 21:11] MED LIST: AZIT250T3 PO; MAGN241.1 PO; PNV1TABL8 PO; POTA10TA70 PO
[2024-01-20 21:31] VITALS: BP 111/46; PULSE 68; RESP 16; TEMP 97.4; O2SAT 98
[2024-01-21] MEDS: ACETAMINOPHEN EXTRA STRENGTH 500 MG TAB PO ONE (00:28)
[2024-01-21 01:44] LABS: BASOPHILS % (AUTO) 0.3 % (0.0-2.0); EOSINOPHILS # (AUTO) 0.2 K/uL (0-0.4); EOSINOPHILS % (AUTO) 2.9 % (0.0-4.0); HEMATOCRIT 36.3 % (36-48); HEMOGLOBIN 12.8 g/dL (12.0-16.0); LYMPHOCYTES # (AUTO) 1.9 K/uL (2.5-16.5); LYMPHOCYTES % (AUTO) 24.6 % (20.5-51.1); MEAN CORPUSCULAR HEMOGLOBIN 30 pg (27-31); MEAN CORPUSCULAR HGB CONC 35 g/dL (33-37); MEAN CORPUSCULAR VOLUME 85.2 fL (80-94); MONOCYTES # (AUTO) 0.7 K/uL (0.8-1.0); MONOCYTES % (AUTO) 8.5 % (1.7-9.3); NEUTROPHILS # (AUTO) 5.1 K/uL (1.8-7.7); NEUTROPHILS % (AUTO) 63.7 % (42.2-75.2); PLATELET COUNT (AUTO) 256 K/uL (140-450); RED BLOOD CELL COUNT(AUTO) 4.27 MIL/uL (4.20-5.40); RED CELL DISTRIBUTION WIDTH 13.4 % (11.6-13.7); WHITE BLOOD COUNT (AUTO) 7.9 K/uL (4.8-10.8)
[2024-01-21 02:01] LABS: ANION GAP 12.7 (8-16); CALCIUM 8.9 mg/dL (8.5-10.1); CARBON DIOXIDE 25.9 mmol/L (21-32); CREATININE 0.7 mg/dL (0.6-1.3); POTASSIUM 3.6 mmol/L (3.5-5.1)
[2024-01-21 02:06] LABS: ALBUMIN 3.5 g/dL (3.4-5.0); TOTAL BILIRUBIN 0.3 mg/dL (0.0-1.0); TOTAL PROTEIN, SERUM 7.5 g/dL (6.4-8.2)
== END 2024-01-21 03:14 | disposition home or self-care (01) ==
LOC: MED 21:11
DX: O9A.211 Injury, poisoning and certain other consequences of external causes complicating pregnancy, first trimester (principal); S39.91XA Unspecified injury of abdomen, initial encounter; O20.8 Other hemorrhage in early pregnancy; Z79.899 Other long term (current) drug therapy; Z3A.01 Less than 8 weeks gestation of pregnancy; V89.2XXA Person injured in unspecified motor-vehicle accident, traffic, initial encounter; Y93.89 Activity, other specified; Y92.410 Unspecified street and highway as the place of occurrence of the external cause; Y99.8 Other external cause status
CPT/HCPCS: 36415; 76801; 80053; 84702; 85025; 86886; 86900; 86901; 99284; Q0092